=== PATIENT | male | born 1995 | race Caucasian/White ===

== ENCOUNTER 2018-02-27 19:06 | Emergency (ER) | payer SELFPAY ==
[2018-02-27 20:47] LABS: Absolute Monocytes 0.7 K/uL (0.1-1.3); Absolute Neutrophil 9.4 K/uL (1.8-8.0); Basophils % 0.6 % (0-1.3); Eosinophils % 0.8 % (0-4.4); Hematocrit 41.9 % (39.6-49.0); Lymphocytes % 16.3 % (15.3-44.8); MCH 30.5 pg (27.0-35.0); MCV 88.8 fL (80-100); MPV 7.9 fL (7.6-11.3); Monocytes % 5.9 % (3.3-12.3); RBC Red Blood Cell Count 4.72 M/uL (4.33-5.43)
[2018-02-27 20:49] LABS: Potassium 4.2 mmol/L (3.5-5.1)
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
--- NOTE | 2018-02-27 21:27 | RAD REPORT ---
EXAM DESCRIPTION: RAD - Hand Right 3 View - 02/27/2018 8:54 pm CLINICAL HISTORY: Right hand pain status post injury FINDINGS: No acute fracture or dislocation is seen. An old fracture involves the fifth metacarpal
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
== END 2018-02-27 22:00 | disposition home or self-care (01) ==
LOC: ER 19:06
DX: S06.0X0A Concussion without loss of consciousness, initial encounter (principal); S20.219A Contusion of unspecified front wall of thorax, initial encounter; V49.40XA Driver injured in collision with unspecified motor vehicles in traffic accident, initial encounter; S63.8X1A Sprain of other part of right wrist and hand, initial encounter
CPT/HCPCS: 36415; 70450; 71260; 72125; 74177; 80048; 85025; Q9967